=== PATIENT | male | born 1950 | race Caucasian/White ===

== ENCOUNTER 2022-10-03 16:22 | Observation (INO) | payer MEDICARE, OTHER ==
[2022-10-03 19:49] VITALS: BMI 23.5
[2022-10-03] MEDS ORDERED: Acetaminophen 325 MG TAB PO PRN (21:10)
[2022-10-03] MEDS: HYDROcodone/Acetaminophen 5/325 mg Tablet PO PRN (21:40)
[2022-10-04 07:15] LABS: #Eosinphils 0.4 thou/uL (0.0-0.7); #Lymphocytes 1.6 thou/uL (1.20-3.40); #Monocytes 0.6 thou/uL (0.11-0.59); #Neutrophils 3.2 thou/uL (1.40-6.50); %Basophils 0.1 % (0.0-1.0); %Eosinophils 6.5 % (0.0-10.0); %Lymphocytes 27.4 % (21.0-51.0); %Monocytes 9.9 % (0.0-10.0); Hemoglobin 10.4 g/dL (14.0-18.0); Mean Corpuscular HGB CONC 33.2 g/dL (32.0-36.0); Mean Corpuscular Volume 93.3 fl (78.0-98.0); Mean Platelet Volume 8.6 fL (7.4-10.4); Platelet Count 192 10x3/uL (130-400); RBC Distribution Width 11.7 % (11.5-14.5); Red Blood Cell (RBC) Count 3.34 mill/uL (4.70-6.10); White Blood Cell (WBC) Count 5.7 10x3/uL (4.8-10.8)
[2022-10-04 07:37] LABS: Iron 58 ug/dL (65-175); Iron Binding Capacity, Total 205 mcg/dL (261-462)
[2022-10-04 07:38] LABS: Anion Gap 11 mmol/L (10-20); BUN (Urea Nitrogen) 12 mg/dL (8.4-25.7); Calc. Creatinine Clearance 54 mL/min (70-130); Calcium 7.9 mg/dL (7.8-10.44); Carbon Dioxide 21 mmol/L (23-31); Chloride 106 mmol/L (98-107); Estimated GFR 67; Glucose 87 mg/dL (83-110); Iron 57 ug/dL (65-175); Iron Binding Capacity, Total 208 mcg/dL (261-462); Potassium 3.1 mmol/L (3.5-5.1); Sodium 135 mmol/L (136-145)
[2022-10-04 07:56] LABS: Ferritin 125.14 ng/mL (22-322); Thyroid Stimulating Hormone 0.8272 uIU/mL (0.35-4.94)
[2022-10-04] MEDS: tiZANidine HCl 4 MG TAB PO SCH ×2 (08:27→20:04)
[2022-10-04] MEDS: HYDROcodone/Acetaminophen 5/325 mg Tablet PO PRN ×3 (10:25→20:03)
[2022-10-04] MEDS ORDERED: Lorazepam 0.5 MG TAB PO PRN (14:06)
[2022-10-04] MEDS ORDERED: Sertraline 100 MG TAB PO SCH (14:15)
[2022-10-04] MEDS: Potassium Chloride 20 MEQ TAB PO SCH ×2 (14:44→18:29)
[2022-10-04] MEDS ORDERED: Doxepin HCl 25 MG CAP PO SCH (21:00)
[2022-10-05] MEDS: HYDROcodone/Acetaminophen 5/325 mg Tablet PO PRN ×2 (05:13→09:11)
[2022-10-05 05:16] VITALS: TEMP 98.5
[2022-10-05 07:54] VITALS: BP 147/85
[2022-10-05] MEDS: tiZANidine HCl 4 MG TAB PO SCH (08:06)
[2022-10-05] MEDS ORDERED: Sertraline 25 MG TAB PO SCH (09:00)
== END 2022-10-05 11:57 | disposition home or self-care (01) ==
LOC: T4-B 18:35
PROVIDERS: ADMIT Hospitalist; ATTEND Hospitalist
DX: R53.1 Weakness (principal); E87.6 Hypokalemia; D50.9 Iron deficiency anemia, unspecified; G89.29 Other chronic pain; M54.2 Cervicalgia; H91.90 Unspecified hearing loss, unspecified ear; J98.4 Other disorders of lung; Z86.73 Personal history of transient ischemic attack (TIA), and cerebral infarction without residual deficits; Z79.899 Other long term (current) drug therapy; Z88.0 Allergy status to penicillin; Z91.048 Other nonmedicinal substance allergy status; W19.XXXA Unspecified fall, initial encounter; Y92.009 Unspecified place in unspecified non-institutional (private) residence as the place of occurrence of the external cause
CPT/HCPCS: 36415; 80048; 82274; 82607; 82728; 83540; 83550; 84443; 85025; G0378